=== PATIENT | female | born 1960 | race Caucasian/White ===

== ENCOUNTER 2017-11-29 13:20 | Emergency (ER) | payer OTHER ==
--- NOTE | 2017-11-29 14:58 | CT ---
CT BRAIN WITHOUT CONTRAST: Date: 11/29/17 The ventricles are normal in size with no shift. No intracranial bleeding or extra-axial hematoma see n. No sign of mass, edema, or stroke. No skull fracture seen. Sphenoid sinus is clear and mastoid air cells are as well. IMPRESSION: No acute intracranial findings. POS: HOME
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
== END 2017-11-29 14:38 | disposition home or self-care (01) ==
LOC: BURERS 13:20
DX: S06.0X0A Concussion without loss of consciousness, initial encounter (principal); S00.83XA Contusion of other part of head, initial encounter; F39 Unspecified mood [affective] disorder; V43.52XA Car driver injured in collision with other type car in traffic accident, initial encounter
CPT/HCPCS: 70450; 70486; 72125